=== PATIENT | female | born 1970 | race Two or more races ===

== ENCOUNTER 2019-10-28 03:36 | Emergency (ER) | payer MEDICAID ==
[~2019-10-28] VITALS: Ht 157.5 cm; Wt 61.2 kg
[2019-10-28 04:00] VITALS: BP 136/76
--- NOTE | 2019-10-28 04:00 | NUR ---
ED Nurse Note: Pt walked into ED from home for c/o constant back pain onset two days ago. 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 Pt also reports painful urination x1 week. Pt denies SOB, fever, cough. Pt is breathing normal and unlabored and no cardiac distress. Pt notes hx of chronic back pain, but is not having it managed by a PCP. Will cont. to monitor.
--- NOTE | 2019-10-28 04:05 | NUR ---
ED Nurse Note: Pt denies injury or trauma to back.
[2019-10-28] MEDS ORDERED: Ketorolac 30mg Inj IV ONE (04:15)
[2019-10-28] MEDS ORDERED: Levofloxacin 500mg tab ORAL ONE (04:15)
[2019-10-28 04:25] LABS: APPEARANCE,URINE CLEAR; BILIRUBIN, URINE NEGATIVE (NEGATIVE); COLOR,URINE PALE YELLOW; GLUCOSE, URINE (UA) NEGATIVE (NEGATIVE); KETONES,URINE NEGATIVE (NEGATIVE); NITRITE,URINE NEGATIVE (NEGATIVE); PH,URINE 5 (4.5-8.0); PROTEIN,URINE NEGATIVE (NEGATIVE); UROBILINOGEN,URINE NORMAL MG/DL (0.0-1.0)
[2019-10-28 04:43] LABS: LEUKOCYTE ESTERASE ,URINE 2+ (NEGATIVE)
[2019-10-28 04:57] LABS: BASOPHILS % (AUTO) 0.8 % (0.0-2.0); EOSINOPHILS % (AUTO) 1.4 % (0.0-3.0); HEMATOCRIT 36.3 % (37.0-47.0); HEMOGLOBIN 12.3 G/DL (12.0-16.0); LYMPHOCYTES % (AUTO) 19.3 % (20.0-45.0); MEAN CORPUSCULAR VOLUME 85 FL (80-99); MONOCYTES % (AUTO) 8.1 % (1.0-10.0); NEUTROPHILS % (AUTO) 70.5 % (45.0-75.0); PLATELET COUNT 276 K/UL (150-450); RED BLOOD COUNT 4.25 M/UL (4.20-5.40); RED CELL DISTRIBUTION WIDTH 12.3 % (11.6-14.8); WHITE BLOOD COUNT 12.5 K/UL (4.8-10.8)
--- NOTE | 2019-10-28 05:00 | NUR ---
ED Nurse Note: Pt states no pain at this time after receiving toradol. Pt is resting comfortably in bed. NAD.
[2019-10-28 05:02] LABS: ANION GAP 11 mmol/L (5-15); BLOOD UREA NITROGEN 8 mg/dL (7-18); CALCIUM 9.4 MG/DL (8.5-10.1); CARBON DIOXIDE 27 MMOL/L (21-32); CHLORIDE 104 MMOL/L (98-107); CREATININE 0.7 MG/DL (0.55-1.30); POTASSIUM 3.6 MMOL/L (3.5-5.1); SODIUM 142 MMOL/L (136-145)
[2019-10-28 05:07] LABS: ALANINE AMINOTRANSFERASE 22 U/L (12-78); ALBUMIN 3.5 G/DL (3.4-5.0); ALKALINE PHOSPHATASE 110 U/L (46-116); ASPARTATE AMINO TRANSFERASE 18 U/L (15-37); BILIRUBIN,TOTAL 0.2 MG/DL (0.2-1.0)
--- NOTE | 2019-10-28 05:39 | Emergency Room Report ---
History of Present Illness General Chief Complaint: Lower Back Pain or Injury Source: Patient Present Illness HPI Patient presented for left flank pain. Associated dysuria and nausea, denies vomiting or chills. Took [place] prior to arrival without improvement.Patient a prior history of kidney stones. Denies any vomiting. Patient patient reports of increased sharp pain. Denies any hematuria. Denies any dizziness or lightheadedness. Had been having burning with urination for several days. Allergies: Coded Allergies: PENICILLINS (Verified Allergy, Unknown, 10/28/19) COVID-19 Screening Contact w/high risk pt: No Recent Travel to affected area: No Experienced COVID-19 symptoms?: No COVID-19 Testing performed [employer]: No Patient History Last Menstrual Period: 2019 Now: No : 2 Para: 2 Reviewed Nursing Documentation: PMH: Agreed; PSxH: Agreed Nursing Documentation-PMH Past Medical History: No History, Except For Review of Systems All Other Systems: negative except mentioned in HPI Physical Exam Vital Signs Date Time Temp Pulse Resp B/P (MAP) Pulse Ox O2 Delivery O2 Flow Rate FiO2 10/28/19 03:47 98.4 74 20 136/76 (96) 100 Room Air Sp02 EP Interpretation: reviewed, normal General Appearance: normal inspection, well appearing, no apparent distress, alert, GCS 15 Head: atraumatic ENT: normal ENT inspection, hearing grossly normal, normal voice Neck: normal inspection, full range of motion, supple, no bony tend Respiratory: normal inspection, lungs clear, normal breath sounds, no respiratory distress, no retraction, no wheezing Cardiovascular #1: regular rate, rhythm, no edema Gastrointestinal: normal inspection, normal bowel sounds, non tender, soft, no guarding, no hernia Genitourinary: CVA tenderness (L) Musculoskeletal: normal inspection, back normal, normal range of motion Neurologic: alert, motor strength/tone normal, 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 Differential diagnosis include was not limited to kidney stone, pyelonephritis, bowel obstruction, ovarian cyst rupture among others. Because of complexity of patient's case laboratory tests and imaging studies were ordered. Patient was noted to have some symptoms consistent with a kidney stone. Patient was given pain medications as well as IV antibiotics. CT imaging showed 4 mm stone at the left UVJ. Patient had complete improvement in her pain and appears to be stable for close outpatient follow-up. She was given prescription for pain medication as well as further antibiotics. She advised to return if worse. Labs Test 10/28/19 04:00 10/28/19 04:10 Urine Color Pale yellow Urine Appearance Clear Urine pH 5 (4.5-8.0) Urine Specific [place] 1.010 (1.005-1.035) Urine Protein Negative (NEGATIVE) Urine Glucose (UA) Negative (NEGATIVE) Urine Ketones Negative (NEGATIVE) Urine Blood 2+ (NEGATIVE) Urine Nitrite Negative (NEGATIVE) Urine Bilirubin Negative (NEGATIVE) Urine Urobilinogen Normal MG/DL (0.0-1.0) Urine Leukocyte Esterase 2+ (NEGATIVE) Urine RBC 5-10 /HPF (0 - 2) Urine WBC 20-30 /HPF (0 - 2) Urine Squamous Epithelial Cells Few /LPF (NONE/OCC) Urine Bacteria Few /HPF (NONE) White Blood Count 12.5 K/UL (4.8-10.8) Red Blood Count 4.25 M/UL (4.20-5.40) Hemoglobin 12.3 G/DL (12.0-16.0) Hematocrit 36.3 % (37.0-47.0) Mean Corpuscular Volume 85 FL (80-99) Mean Corpuscular Hemoglobin 29.0 PG (27.0-31.0) Mean Corpuscular Hemoglobin Concent 33.9 G/DL (32.0-36.0) Red Cell Distribution Width 12.3 % (11.6-14.8) Platelet Count 276 K/UL (150-450) Mean Platelet Volume 6.4 FL (6.5-10.1) Neutrophils (%) (Auto) 70.5 % (45.0-75.0) Lymphocytes (%) (Auto) 19.3 % (20.0-45.0) Monocytes (%) (Auto) 8.1 % (1.0-10.0) Eosinophils (%) (Auto) 1.4 % (0.0-3.0) Basophils (%) (Auto) 0.8 % (0.0-2.0) Sodium Level 142 MMOL/L (136-145) Potassium Level 3.6 MMOL/L (3.5-5.1) Chloride Level 104 MMOL/L (98-107) Carbon Dioxide Level 27 MMOL/L (21-32) Anion Gap 11 mmol/L (5-15) Blood Urea Nitrogen 8 mg/dL (7-18) Creatinine 0.7 MG/DL (0.55-1.30) Estimat Glomerular Filtration Rate > 60 mL/min (>60) Glucose Level 110 MG/DL (74-106) Calcium Level 9.4 MG/DL (8.5-10.1) Total Bilirubin 0.2 MG/DL (0.2-1.0) Aspartate Amino Transf (AST/SGOT) 18 U/L (15-37) Alanine Aminotransferase (ALT/SGPT) 22 U/L (12-78) Alkaline Phosphatase 110 U/L (46-116) Troponin I 0.000 ng/mL (0.000-0.056) Total Protein 7.0 G/DL (6.4-8.2) Albumin 3.5 G/DL (3.4-5.0) Globulin 3.5 g/dL Albumin/Globulin Ratio 1.0 (1.0-2.7) Lipase 111 U/L (73-393) Last Vital Signs Date Time Temp Pulse Resp B/P (MAP) Pulse Ox O2 Delivery O2 Flow Rate FiO2 10/28/19 04:00 98.4 74 20 136/76 100 Room Air Status: improved Disposition: HOME, SELF-CARE Condition: Stable Scripts Hydrocodone Bit/Acetaminophen 5-325* (NORCO 5-325 TABLET*) 1 Each Tablet 1 TAB ORAL Q6H PRN for FOR PAIN, #10 TAB 0 Refills Prov: Tony Draper MD 10/28/19 Trimethoprim/Sulfamethoxazole 160/800* (BACTRIM DS TABLET*) 1 Each Tablet 1 TAB ORAL Q12H, #14 TAB 0 Refills Prov: Tony Draper MD 10/28/19 Referrals: [facility] (PCP) Tony Draper MD October 28, 2019 05:39
[2019-10-28] MEDS ORDERED: BACTRIM DS TAB1 EAC1 ORAL (05:47)
[2019-10-28] MEDS ORDERED: NORCO 5-325 TA1 EAC1 ORAL (05:47)
--- NOTE | 2019-10-28 05:47 | Diagnostic Imaging Report ---
EXAM: CT Abdomen and Pelvis Without Intravenous Contrast CLINICAL HISTORY: PAIN TECHNIQUE: Axial computed tomography images of the abdomen and pelvis without intravenous contrast. CTDI is 6.2 mGy and DLP is 316.4 mGy-cm. One or more of the following dose reduction techniques were used: automated exposure control, adjustment of the mA and/or kV according to patient size, use of iterative reconstruction technique. COMPARISON: No relevant prior studies available. FINDINGS: Lung bases: Unremarkable. No mass. No consolidation. ABDOMEN: Liver: Unremarkable. Gallbladder and bile ducts: Unremarkable. No calcified stones. No ductal dilation. Pancreas: Unremarkable. No ductal dilation. Spleen: Unremarkable. No splenomegaly. Adrenals: Unremarkable. No mass. Kidneys and ureters: There is an obstructing 4 mm calculus at the left UVJ, with mild left-sided hydroureteronephrosis, left renal edema and perinephric infiltrative changes. Findings are consistent with a left- sided obstructive uropathy. No additional calculi are seen within the renal collecting systems or ureters. Stomach and bowel: Unremarkable. No obstruction. No mucosal thickening. PELVIS: Appendix: No findings to suggest acute appendicitis. Bladder: Unremarkable. No stones. Reproductive: Unremarkable as visualized. ABDOMEN and PELVIS: Intraperitoneal space: Unremarkable. No free air. No significant fluid collection. Bones/joints: No acute fracture. No dislocation. Soft tissues: Unremarkable. Vasculature: Unremarkable. No abdominal aortic aneurysm. Lymph nodes: Unremarkable. No enlarged lymph nodes. IMPRESSION: Left-sided obstructive uropathy due to a 4 mm calculus at the left UVJ.
[2019-10-28 06:00] VITALS: BP 105/60
--- NOTE | 2019-10-28 06:00 | NUR ---
ER DISCHARGE NOTE: Patient is cleared to be discharged per ERMD, pt is aox4, on room air, with stable vital signs. pt was given dc and prescription instructions, pt was able to verbalize understanding, pt id band and iv site removed without complications. pt is able to ambulate with steady gait. pt took all belongings.
== END 2019-10-28 06:00 | disposition home or self-care (01) ==
LOC: EMR 04:57
DX: N23 Unspecified renal colic (principal); Z88.0 Allergy status to penicillin; R30.0 Dysuria; R11.0 Nausea
CPT/HCPCS: 36415; 74176; 80053; 81003; 83690; 84484; 85025; 86850; 86900; 86901; 87040; 87086; 87181; 96374; J1885; Z7502; 99284

== ENCOUNTER 2020-01-17 20:17 | Emergency (ER) | payer MEDICAID ==
[~2020-01-17] VITALS: Ht 157.5 cm; Wt 62.6 kg
[~2020-01-17 20:17] MED LIST: BACTRIM DS TAB1 EAC1 ORAL; NORCO 5-325 TA1 EAC1 ORAL
[2020-01-17 20:48] VITALS: BP 124/70
--- NOTE | 2020-01-17 21:11 | Emergency Room Report ---
History of Present Illness General Chief Complaint: Chest Pain Source: Patient Present Illness HPI Disclaimer: Please note that this report is being documented using [employer] technology. This can lead to erroneous entry secondary to incorrect interpretation by the dictating instrument. HPI: 49-year-old female history of kidney stones presented for left-sided chest arm and shoulder pain. She states the chest pain is been present for about 2 weeks. Involving the left shoulder left neck and left arm. Worse with movement. Aching in nature about 8 out of 10. No shortness of breath nausea or vomiting. Patient does report mild dizziness. She has no cardiac history. She denies any trauma. No shortness of breath nausea vomiting fevers or coughing. PMH: Kidney stone PSH: Reviewed Social Hx: Denies smoking drinking or illicit drug use Allergies: Coded Allergies: PENICILLINS (Verified Allergy, Unknown, 10/28/19) COVID-19 Screening Contact w/high risk pt: No Recent Travel to affected area: No Experienced COVID-19 symptoms?: No COVID-19 Testing performed [employer]NAGEMENT: No Patient History Last Menstrual Period: n/a Reviewed Nursing Documentation: PMH: Agreed; PSxH: Agreed Nursing Documentation-PMH Past Medical History: No Stated History Review of Systems All Other Systems: negative except mentioned in HPI Physical Exam Vital Signs Date Time Temp Pulse Resp B/P (MAP) Pulse Ox O2 Delivery O2 Flow Rate FiO2 01/17/20 20:19 98.4 92 18 133/87 (102) 98 Room Air Sp02 EP Interpretation: reviewed, normal General Appearance: well appearing, no apparent distress Head: normocephalic, atraumatic Eyes: bilateral eye PERRL, bilateral eye EOMI ENT: hearing grossly normal, moist mucus membranes Neck: full range of motion, supple Respiratory: lungs clear, normal breath sounds, no rhonchi, no respiratory distress, no retraction, no wheezing Cardiovascular #1: normal peripheral pulses, regular rate, rhythm, no murmur Gastrointestinal: non tender, soft, non-distended, no guarding Musculoskeletal: other - Left shoulder mildly tender posteriorly along the suprascapular area. Full range of motion of left arm with some pain with reaching around the back. Neurologic: alert, oriented x3, no focal defects Skin: normal color, warm/dry Medical Decision Making Diagnostic Impression: Primary Impression: Atypical chest pain Additional Impression: Shoulder pain, left ER Course MDM: Differential diagnosis included but not limited to costochondritis, rotator cuff injury, did consider ACS. Patient EKG had no ischemic changes. She had no cardiac risk factors. Pain was atypical in nature. Clinical course-laboratory studies were sent showed no significant abnormalities. Troponin negative. Chest x-ray ordered showed no acute abnormality as well. EKG had no ischemic changes. Patient has no history of cardiac issues diabetes hypertension. Vital signs were stable in the ER. Pain is more chronic in nature. Low suspicion for ACS or other emergent pathology at this time. Patient given a dose of Toradol in the ER will be given a left shoulder sling and be discharged with outpatient follow-up. She was given return precautions. She was stable for discharge. Labs - Laboratory Tests Test 01/17/20 20:46 White Blood Count 9.1 K/UL (4.8-10.8) Red Blood Count 4.37 M/UL (4.20-5.40) Hemoglobin 12.8 G/DL (12.0-16.0) Hematocrit 39.5 % (37.0-47.0) Mean Corpuscular Volume 90 FL (80-99) Mean Corpuscular Hemoglobin 29.2 PG (27.0-31.0) Mean Corpuscular Hemoglobin Concent 32.4 G/DL (32.0-36.0) Red Cell Distribution Width 13.8 % (11.6-14.8) Platelet Count 289 K/UL (150-450) Mean Platelet Volume 7.6 FL (6.5-10.1) Neutrophils (%) (Auto) 64.8 % (45.0-75.0) Lymphocytes (%) (Auto) 25.2 % (20.0-45.0) Monocytes (%) (Auto) 7.1 % (1.0-10.0) Eosinophils (%) (Auto) 2.1 % (0.0-3.0) Basophils (%) (Auto) 0.8 % (0.0-2.0) Sodium Level 139 MMOL/L (136-145) Potassium Level 4.1 MMOL/L (3.5-5.1) Chloride Level 103 MMOL/L (98-107) Carbon Dioxide Level 27 MMOL/L (21-32) Anion Gap 9 mmol/L (5-15) Blood Urea Nitrogen 24 mg/dL (7-18) H Creatinine 1.2 MG/DL (0.55-1.30) Estimated Glomerular Filtration Rate 47.3 mL/min (>60) Glucose Level 136 MG/DL (74-106) H Calcium Level 9.9 MG/DL (8.5-10.1) Total Bilirubin 0.2 MG/DL (0.2-1.0) Aspartate Amino Transferase (AST) 22 U/L (15-37) Alanine Aminotransferase (ALT) 29 U/L (12-78) Alkaline Phosphatase 126 U/L (46-116) H Troponin I 0.000 ng/mL (0.000-0.056) Pro-B-Type Natriuretic Peptide 33 pg/mL (0-125) Total Protein 8.0 G/DL (6.4-8.2) Albumin 4.3 G/DL (3.4-5.0) Globulin 3.7 g/dL Albumin/Globulin Ratio 1.2 (1.0-2.7) On reevaluation: Patient in no acute distress with stable vital signs Plan-discharge home anti-inflammatory pain medications follow-up PMD and return precautions. EKG Diagnostic Results Rate: normal Rhythm: NSR ST Segments: no acute changes Chest X-Ray Diagnostic Results Chest X-Ray Diagnostic Results : Chest X-Ray Ordered: Yes # of Views/Limited/Complete: 1 View Indication: Chest Pain EP Interpretation: Yes Interpretation: no consolidation, no effusion, no pneumothorax Impression: No acute disease Electronically Signed by: Lawson Villegas MD Last Vital Signs Date Time Temp Pulse Resp B/P (MAP) Pulse Ox O2 Delivery O2 Flow Rate FiO2 01/17/20 20:48 98.4 85 21 124/70 99 Room Air Status: improved Disposition: HOME, SELF-CARE Condition: Improved Scripts Naproxen* (NAPROXEN*) 500 Mg Tablet 500 MG ORAL TWICE A WEEK PRN for For Pain, #30 TAB 0 Refills Prov: Lawson Villegas M.D. 01/17/20 Referrals: [facility] (PCP) Lawson Villegas M.D. Jan 17, 2020 21:11
[2020-01-17 22:00] LABS: ANION GAP 9 mmol/L (5-15); BLOOD UREA NITROGEN 24 mg/dL (7-18); CALCIUM 9.9 MG/DL (8.5-10.1); CARBON DIOXIDE 27 MMOL/L (21-32); CHLORIDE 103 MMOL/L (98-107); CREATININE 1.2 MG/DL (0.55-1.30); POTASSIUM 4.1 MMOL/L (3.5-5.1); SODIUM 139 MMOL/L (136-145)
[2020-01-17 22:01] LABS: BASOPHILS % (AUTO) 0.8 % (0.0-2.0); EOSINOPHILS % (AUTO) 2.1 % (0.0-3.0); HEMATOCRIT 39.5 % (37.0-47.0); HEMOGLOBIN 12.8 G/DL (12.0-16.0); LYMPHOCYTES % (AUTO) 25.2 % (20.0-45.0); MEAN CORPUSCULAR VOLUME 90 FL (80-99); MONOCYTES % (AUTO) 7.1 % (1.0-10.0); NEUTROPHILS % (AUTO) 64.8 % (45.0-75.0); PLATELET COUNT 289 K/UL (150-450); RED BLOOD COUNT 4.37 M/UL (4.20-5.40); RED CELL DISTRIBUTION WIDTH 13.8 % (11.6-14.8); WHITE BLOOD COUNT 9.1 K/UL (4.8-10.8)
[2020-01-17 22:12] LABS: ALANINE AMINOTRANSFERASE 29 U/L (12-78); ALBUMIN 4.3 G/DL (3.4-5.0); ALBUMIN/GLOBULIN RATIO 1.2 (1.0-2.7); ALKALINE PHOSPHATASE 126 U/L (46-116); ASPARTATE AMINO TRANSFERASE 22 U/L (15-37); BILIRUBIN,TOTAL 0.2 MG/DL (0.2-1.0)
[2020-01-17] MEDS ORDERED: NAPROXEN500 M2 ORAL (22:16)
[2020-01-17] MEDS ORDERED: Ketorolac 30mg Inj IV ONE (22:30)
[2020-01-17 22:35] VITALS: BP 122/75
--- NOTE | 2020-01-18 14:38 | Diagnostic Imaging Report ---
Indication: Chest pain Technique: XRAY Chest 1v Comparison: None Findings: Heart size and mediastinal contours are within normal limits for AP technique. Aorta is tortuous. There is no focal airspace consolidation, pneumothorax or pleural effusion. There are degenerative changes in the spine. Osseous structures demonstrate no acute abnormality. Impression: No radiographic evidence of acute cardiopulmonary disease.
== END 2020-01-17 22:35 | disposition home or self-care (01) ==
LOC: EMR 20:32
DX: R07.9 Chest pain, unspecified (principal); M25.512 Pain in left shoulder; Z88.0 Allergy status to penicillin; Z87.442 Personal history of urinary calculi
CPT/HCPCS: 36415; 71045; 80053; 83880; 84484; 85025; 93005; 96374; J1885; Z7502; 99284